=== PATIENT | male | born 1950 | race Caucasian/White ===

== ENCOUNTER 2017-11-29 12:54 | Inpatient (IN) | payer OTHER, BC ==
[~2017-11-29] VITALS: Ht 172.7 cm; Wt 99.2 kg
--- NOTE | ~2017-11-29 | O ---
[facility] [place] [address] OPERATIVE REPORT Name: SRIKANTH JOSHUA Room #: 350-P [facility] IN M.R.#: [id number] Admission: 11/29/17 Attend Phys: Eduardo Clemens MD Discharge: Date of : 46 Report #: [id number] THIS REPORT FOR: //name// CC: Eduardo Clemens Physician staff SHERRY COBB DATE OF SERVICE: 12/01/2017 SERVICE: Orthopedics. FACILITY: [facility] SURGEON: Eduardo Clemens MD PREOPERATIVE DIAGNOSES: 1. Left ankle fracture dislocation. 2. Status post closed reduction with splinting, left ankle. 3. Left ankle and hindfoot fracture blisters with residual length. 4. Left knee flexion contracture. POSTOPERATIVE DIAGNOSES: 1. Left ankle fracture dislocation. 2. Status post closed reduction with splinting, left ankle. 3. Left ankle and hindfoot fracture blisters with residual length. 4. Left knee flexion contracture. PROCEDURE: 1. Open reduction and internal fixation of left ankle fracture dislocation with internal fixation of the fibula. 2. Debridement and irrigation of superficial ankle and hindfoot wounds covering total 120 square cm. COMPLICATIONS: None. DRAINS: None. SPECIMENS: None. FINDINGS: 1. A 1/ tubular fibular plate with lag screw fixation. 2. Superficial debridement and cutaneous wound care performed. HISTORY AND INDICATIONS: The patient is a 67-year-old who sustained a fall last week, which resulted in ankle fracture dislocation. He presented to the clinic 2 days with post-injury. It subluxated his ankle. Therefore, he underwent [facility] [address] [place] [address] OPERATIVE REPORT Name: SRIKANTH JOSHUA Room #: 350-P [facility] IN ..#: [id number] Admission: 11/29/17 Attend Phys: Eduardo Clemens MD Discharge: Date of : 46 Report #: [id number] closed reduction. He had very large prominent fracture blisters, essentially circumferentially on the ankle as a result. So I performed wound care at that time as well. Then he was discharged home and then admitted to the hospital 2 days in advance for preparation, preoperative optimization as he has leukemia, thrombocytopenia and was on anticoagulation. Risks, benefits, alternatives and indications for surgery have been discussed with him in detail. The risks include but are not limited to pain, bleeding, infection, injury to nerves or blood vessels, persistent pain despite surgical intervention, malunion, nonunion, need for further surgery including revision and hardware removal as well as complications related to anesthesia such as stroke, heart attack, pulmonary complications, thromboembolic disease and . Despite these risks, he wished to proceed. PROCEDURE IN DETAIL: After right leg was correctly identified as the operative extremity, the patient was taken to the operating room after the platelet transfusion had been initiated. He was placed supine on operating table. General anesthesia was induced without complication. He was padded appropriately. Prophylactic antibiotics with 900 mg of clindamycin were administered at appropriate time. A tourniquet was applied to the left leg. Left leg was prepped and draped in standard sterile fashion. Time-out procedure was performed. Due to the patient's severe knee flexion contracture, we had to perform additional positioning efforts and then utilized an additional technical recruiter for assistance in leg positioning in order to minimize soft tissue trauma and maintain the ankle with optimal access. The leg was exsanguinated via elevation. The tourniquet was inflated to 250 mmHg. An incision was made posterior to the lateral ankle wound and a full thickness skin flap was developed. Due to the presence of the skin blister directly laterally, I had to move the incision posteriorly, which made for more extensive dissection but it was done in a very diligent gentle fashion to protect the soft tissues as much as possible. The peroneal tendons were identified as was the fibula. Dissection was taken anteriorly. The fracture was exposed and then thoroughly irrigated. Reduction performed and then it was provisionally clamped with bone reduction forceps and then I placed 2 interfragmentary compression screws to provide fixation and maintain the length and alignment. X-rays were then taken in multiple planes. I was happy with the alignment and proceeded with neutralization plate fixation. The patient has thin skin distally and so I did not want to use a distal fibular locking plate because this is very thick and would be problematic and potentially risk in breakdown as well as need for further surgery for hardware removal and he is not an optimal surgical candidate for repeat trips to the operating room. Therefore, I selected a 1/3rd tubular plate, placed in appropriate position and precontoured it. It was fixed to the fibula proximally and then distally and then I used C-arm to assess the reduction and hardware positioning. The more distal interfragmentary [facility] [address] [place] [address] OPERATIVE REPORT Name: SRIKANTH JOSHUA Yasir Room #: 350-P [facility] IN M.R.#: [id number] Admission: 11/29/17 Attend Phys: Eduardo Clemens MD Discharge: Date of : 46 Report #: [id number] compression screw obstructed purchase on the fibula distally, so ultimately this was removed and this allowed more purchase distally. More proximal interfragmentary compression screw was providing good stability, so the plate still served a neutralization role. I placed total of 3 cortical screws proximally. I did not need to utilize the fourth. This therefore allowed me to perform less soft tissue dissection proximally. Final x-rays were taken after the hardware was in and the reduction was assessed. It was found to be stable. There was no further internal fixation required. At this point, then the wound was copiously irrigated and the fascial plane was closed over the plate with 0 Vicryl suture in [id number] interrupted fashion and the tourniquet was let down as the skin was closed. A 2-0 Vicryl suture was then utilized on the skin followed by 3-0 nylon sutures in a mattress suture technique. After this was completed, wound care was performed on the ankle. There was sloughing of the skin on all of the fracture blisters which had been treated last week. These had served as a biologic dressing. There was a blood blister on the distal medial side of the ankle extending into the hindfoot. The blisters were present anteriorly, medially and laterally on the hindfoot and ankle. The skin was debrided sharply and then the wounds were all gently cleaned. No significant bleeding occurred from these wounds and then a silver impregnated wound care dressing was selected as the optimal treatment for these cutaneous blisters and exposed epidermis. Sterile dressing was then applied and a very well-padded short leg splint was applied after that and then the patient was awakened from anesthesia and taken to recovery room in stable condition. There were no complications and all counts were recorded as correct. <ELECTRONICALLY SIGNED> By: Eduardo Clemens MD 12/02/17 0649 1259 1423 Eduardo Clemens MD /godfrey
--- NOTE | ~2017-11-29 | EKG ---
[address] [address] ELECTROCARDIOGRAM REPORT Name: SRIKANTH JOSHUA Yasir Room #: 350-P ADM IN M.R.#: [id number] Admission: 11/29/17 Attend Phys: Eduardo Clemens MD Discharge: Date of : 46 Report #: [id number] THIS REPORT FOR: //name// [facility] Test Date: 2017-11-29 Test Time: 15:56:28 Pat Name: SRIKANTH JOSHUA Department: Room: 350 P Gender: M Assistive Technology Specialist: Marcell BLACKMON : 1950 Requested By: Eduardo Clemens Order Number: [id number] MD: Bryson Wesley Measurements Intervals [place] Rate: 68 P: 59 DC: 137 QRS: -41 QRSD: 103 T: 37 QT: 445 QTc: 474 Interpretive Statements Sinus rhythm PAC Left ventricular hypertrophy No previous ECG available for comparison Electronically Signed On 11-29-2017 20:47:15 [employer]ATH[employer] by Bryson Wesley [email or web address] <ELECTRONICALLY SIGNED> By: Bryson Wesley MD 11/29/17 2047 1556 1556 MD MERVIN Hughes
--- NOTE | ~2017-11-29 | HC ---
[facility] [address] [address] CONSULTATION Name: SRIKANTH JOSHUA Room #: 350- ADM IN M.R.#: [id number] Admission: 11/29/17 Attend Phys: Eduardo Clemens MD Discharge: Date of : 46 Report #: [id number] THIS REPORT FOR: //name// CC: DR. JORDEN Clemens MD Physician staff SHERRY GALLAGHER PRIMARY CARE DOCTOR: Dr. Sherry Rosas, [place], [place]. REASON FOR CONSULTATION: CLL and thrombocytopenia. HISTORY OF PRESENT ILLNESS: The patient is a 67-year-old gentleman, originally from [place], [place], who has been in [place], [place] for some time. He has worked at a [employer] center. He evidently was getting into his car and ankle gave out and rotated to side. He may have had subluxation and fracture if I understand. He has plans for surgery tomorrow. His platelets yesterday were 71,000. We are consulted. I did have a chance of talking to Dr. Karly Gallagher, she has been the patient's doctor for several years. She reports that he has benefitted with increasing platelet counts with steroids on several occasions, she suggested we initiate 80 mg of prednisone daily, which was done yesterday. Today, his platelets were essentially stable. We discussed with the patient that we will continue the steroids, but, maybe plan on platelet transfusion if his platelets are less than 80,000. I would expect him to do well. The patient denies any recent fevers, chills, nausea, vomiting, new arm or leg swelling, except for related to the ankle injury from last week. No significant weight change lately. He is not aware of any lymphadenopathy, unexplained fevers or chills. PAST MEDICAL HISTORY: Notable for the CLL. The patient says that they might have become aware of it in 1994. 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 His past therapy had included fludarabine, Cytoxan, rituximab x 1 cycle in 2003. He had single agent rituximab in 2003 with brief response. From 02/2000 through 04/2005, he had Campath due to progressive disease with good results. Then, between 06/2011 and 10/2011, received 6 cycles of bendamustine and rituximab, with reduced doses due to low platelet count. The patient reports no difficulties with his CLL or counts lately. The patient also has a history of hypertension, atrial fibrillation ____ heart disease with reports of heart failure in the past but another report of recent EF that is stable. Also has a history of gout, also mood disorder. SOCIAL HISTORY: He had worked at a [employer] center [place] [address] CONSULTATION Name: SRIKANTH JOSHUA Yasir Room #: 350-P [facility] IN ..#: [id number] Admission: 11/29/17 Attend Phys: Eduardo Clemens MD Discharge: Date of : 46 Report #: [id number] tobacco about 14 years ago, did vape for a while, stopped vaping, I believe at least 6 months ago. No significant alcohol, maybe 1 or 2 per month if had. No street drugs. FAMILY HISTORY: Mother had breast cancer in her 60s and then may be uterine cancer at a later age. Father had heart disease beginning in, maybe late 40s to early 50s, also hypertension. Had a sister with breast cancer in her 50s, another sister without issues. MEDICATIONS: Prior to admission had included allopurinol 150 mg daily, bupropion 150 mg XL once daily, carvedilol 25 b.i.d., cetirizine 10 mg b.i.d., docusate p.r.n. Enalapril 20 b.i.d., escitalopram 20 mg daily, Flonase each nostril daily as needed, lactase for lactulose intolerance daily, morphine 30 mg q.4 h p.r.n., oxycodone 30 mg q.6 hours p.r.n., Pepcid 20 mg b.i.d., potassium chloride 1 tab b.i.d., Ventolin inhalers q.6 hours p.r.n., warfarin per scheduled dose, but not recently on that. ALLERGIES: SUPPOSEDLY HAD HIVES WITH AMOXICILLIN. FACIAL SWELLING WITH GOLD CONTAINING COMPOUNDS. TRAZODONE WAS INTOLERANT. ZANAFLEX INTOLERANT. CURRENT MEDICATIONS IN THE HOSPITAL: Currently include Tylenol 500 mg q.6 p.r.n., Lovenox 100 mg b.i.d. subcu, enalapril 20 b.i.d., bupropion 150 b.i.d., carvedilol 25 mg b.i.d., OxyIR R30 mg q.6 p.r.n., morphine sulfate 30 mg q.4 p.r.n., prednisone 80 daily begun by this physician, and also lorazepam 0.5 q.i.d. p.r.n. added. PHYSICAL EXAMINATION: GENERAL: The patient appears his stated age. VITAL SIGNS: Recent height is 5 feet 8 inches, 172.7 cm. Weight 219 pounds, 99.6 kilograms. Blood pressure 155/84, O2 sat 99%, respirations 18, pulse 62, temperature 98.3. MOOD: The patient is alert, pleasant and appears to be comfortable. NEUROLOGIC: Face is symmetrical, moving all extremities. LYMPH NODES: None palpable in the supraclavicular, cervical, axillary or inguinal region. ABDOMEN: Obese, nontender. No masses, no hepatosplenomegaly. EXTREMITIES: Without clubbing, cyanosis. Left ankle deferred due to recent injury and tenderness. SKIN: Warm and dry, no unusual ecchymosis. ASSESSMENT AND PLAN: 1. Chronic thrombocytopenia, most likely related to chronic lymphocytic leukemia. We will provide prednisone 80 mg daily to see if we can get above 80,000. If not above 80,000, we will provide platelet transfusion, most likely the patient would do well with platelets above 60,000, but bleeding would be an issue around the tendons and muscles of the ankle. [facility] [address] [place] [address] CONSULTATION Name: SRIKANTH JOSHUA Yasir Room #: 350-P [facility] IN [facility].#: [id number] Admission: 11/29/17 Attend Phys: Eduardo Clemens MD Discharge: Date of : 46 Report #: [id number] 2. Chronic lymphocytic leukemia, no indications for therapy. 3. History of hypertension, possible heart issues, continue carvedilol and enalapril. 4. Gout, allopurinol as needed. 5. Mood, Wellbutrin and escitalopram as needed. 6. Atrial fibrillation, currently off Coumadin, looks like plans are for bridging with Lovenox, which seems very appropriate. 7. Possible lung disease, continue with inhalers as needed. I will be available if questions arise. <ELECTRONICALLY SIGNED> By: Collin Mcintosh MD 12/02/17 0713 0815 0851 Collin Mcintosh MD /nt
--- NOTE | ~2017-11-29 | HC ---
[facility] [place] [address] CONSULTATION Name: SRIKANTH JOSHUA Room #: 350-P ADM IN ..#: [id number] Admission: 11/29/17 Attend Phys: Eduardo Clemens MD Discharge: Date of : 46 Report #: [id number] THIS REPORT FOR: //name// CC: Eduardo Clemens Physician staff SHERRY COBB DATE OF SERVICE: 12/02/2017 HISTORY OF PRESENT ILLNESS: A 67-year-old white male with history of CLL, thrombocytopenia, chronic atrial fibrillation on Coumadin, anticoagulation who has had a history of multiple falls. He has multijoint degenerative arthritis. He had a fall in 11/23/2017, sustained a left ankle fracture with subluxation. He underwent initial splinting and was admitted now to [facility]. On 10/31/2017, he was felt to be medically cleared by Hematology regarding his CLL as well as his other medical comorbidities and underwent open reduction and internal fixation of the left ankle fracture or dislocation. There was also debridement with irrigation. He is limited to nonweightbearing on that left lower extremity. We are seeing him in rehabilitation medicine consultation. PAST MEDICAL HISTORY: Includes CLL, history of paroxysmal atrial fibrillation. He has noted multi-joint degenerative arthritis. ALLERGIES: AMOXICILLIN, TIZANIDINE, TRAZODONE, GOLD SALTS. HABITS: Former tobacco abuse, 30 years of 2 packs per day. PAST SURGICAL HISTORY: Also includes atrial fibrillation, back surgery, right hip replacement, right knee replacement, cardiomyopathy, hypertension, emphysema. There is a note of some neuropathy. SOCIAL HISTORY: House, spouse, 3 steps in, which are now ramped, premorbid walker ambulator due to his multijoint degenerative arthritis and apparently some neuropathy. REVIEW OF SYSTEMS: Did not offer any current complaints of chest pain, shortness of breath or abdominal discomfort. PHYSICAL EXAMINATION: GENERAL: A 67-year-old white male in no obvious distress. VITAL SIGNS: Last recorded temperature 99.2, pulse 62, respirations 18, blood pressure 141/78. The patient is alert, pleasant. HEENT: Appeared to be benign. NEUROLOGIC: Cranial nerves grossly intact. Facies are symmetric. EXTREMITIES: He has definite decreased upper extremity, shoulder range of [facility] [address] [place] [address] CONSULTATION Name: SRIKANTH JOSHUA Room #: [address] [place] [address] [place] [facility].#: [id number] Admission: 11/29/17 Attend Phys: Eduardo Clemens MD Discharge: Date of : 46 Report #: [id number] motion and appears to have severe shoulder chronic degenerative changes and likely some rotator cuff involvement. He cannot abduct past 90 degrees. Elbow flexion and extension is functional with strength grade 4- to 4/5. Lower extremities: He has his prior knee incisions. He has left short leg cast in place. He can wiggle his toes. Right lower extremity, some decreased sensation, proprioception right large toe. Strength is grade 4-/5. He is max assist with sit to stand, 5 feet mod assist to ambulate with a front-wheeled walker. Nonweightbearing left lower extremity. ASSESSMENT: A 67-year-old white male with the following problem list: 1. Left ankle fracture and subluxation, status post open reduction and internal fixation, 12/01/2017. Nonweightbearing. 2. Chronic lymphocytic leukemia with thrombocytopenia. 3. Chronic atrial fibrillation, on Coumadin anticoagulation. 4. History of multiple falls. 5. Multijoint degenerative arthritis. 6. Apparent bilateral shoulder severe degenerative arthritis/rotator cuff involvement. 7. Premorbid walker ambulator. He has been using a wheelchair since he broke his ankle. 8. History clinically of a premorbid peripheral neuropathy. 9. Paroxysmal atrial fibrillation. 10. Past history of tobacco abuse. PLAN: The patient unfortunately does not meet criteria for an acute [address] [place] [address] inpatient rehabilitation stay. He does not meet medical necessity criteria. Would agree with group home facility options as are being considered. <ELECTRONICALLY SIGNED> By: Kade Olivares MD 12/05/17 1509 1253 0043 Kade Olivares MD /[facility]
[2017-11-29 16:01] LABS: HEMATOCRIT 31.2 % (42.0-52.0); HEMOGLOBIN 10.3 gm/dL (14.0-18.0); MCH 29.9 pg (26.0-34.0); MCHC 33.1 g/dL (28.0-37.0); MCV 90.2 fL (80.0-100.0); RBC 3.46 mil/uL (4.50-6.00); WBC 15.6 thou/uL (4.0-11.0)
[2017-11-29 16:13] LABS: ALBUMIN 3.5 g/dL (3.4-5.0); APTT 25.9 Seconds (24.5-32.8); CALCIUM 8.5 mg/dL (8.5-10.1); CREATININE 1.1 mg/dL (0.7-1.3); INR 1.1; POTASSIUM 4.2 mmol/L (3.5-5.1); PROTIME 10.6 Seconds (9.3-11.4); TOTAL BILIRUBIN 0.4 mg/dL (<0.1-1.0)
[2017-11-29] MEDS ORDERED: MORPHINE SULFAT30 M1 PO (16:26)
[2017-11-29] MEDS ORDERED: OXYCODONE HCL30 MG PO (16:28)
[2017-11-29] MEDS ORDERED: COUMADIN 5 MG TA5 M1 PO (16:29)
[2017-11-29] MEDS ORDERED: ESCITALOPRAM OX20 MG PO (16:30)
[2017-11-29] MEDS ORDERED: CETIRIZINE HCL10 MG PO (16:31)
[2017-11-29] MEDS ORDERED: BUPROPION HCL150 M1 PO (16:31)
[2017-11-29] MEDS ORDERED: ALLOPURINOL 30300 M1 PO (16:32)
[2017-11-29] MEDS ORDERED: ENALAPRIL MALEA20 MG PO (16:32)
[2017-11-29] MEDS ORDERED: COREG25 MG PO (16:33)
[2017-11-29] MEDS ORDERED: VENTOLIN HFA 1818 GM INH (16:36)
[2017-11-29 16:42] LABS: ANISOCYTOSIS 1+; ATYPICAL LYMPHS 1 %; PLATELET COUNT 71 thou/uL (150-400)
[2017-11-29 19:35] VITALS: BP 147/77
[2017-11-30 00:05] VITALS: BP 153/82
[2017-11-30 03:52] VITALS: BP 155/84
[2017-11-30 04:29] LABS: HEMATOCRIT 31.2 % (42.0-52.0); HEMOGLOBIN 10.1 gm/dL (14.0-18.0); MCH 29.4 pg (26.0-34.0); MCHC 32.4 g/dL (28.0-37.0); MCV 90.7 fL (80.0-100.0); PLATELET COUNT 68 thou/uL (150-400); RBC 3.45 mil/uL (4.50-6.00); RDW 17.8 % (10.5-14.5); WBC 15.9 thou/uL (4.0-11.0)
[2017-11-30 06:41] LABS: ABSOLUTE NEUTROPHILS 1.4 thou/uL (1.4-8.2); ANISOCYTOSIS 1+; ATYPICAL LYMPHS 1 %
[2017-11-30 08:15] VITALS: BP 165/92
[2017-11-30 16:15] VITALS: BP 151/95
[2017-11-30 19:50] VITALS: BP 155/74
[2017-12-01] VITALS (8 sets, daily range): BP systolic 121–183; BP diastolic 70–106
[2017-12-01 05:49] LABS: HEMATOCRIT 29.6 % (42.0-52.0); HEMOGLOBIN 9.6 gm/dL (14.0-18.0); MCH 29.4 pg (26.0-34.0); MCHC 32.5 g/dL (28.0-37.0); MCV 90.4 fL (80.0-100.0); RBC 3.27 mil/uL (4.50-6.00); RDW 17.6 % (10.5-14.5); WBC 21.2 thou/uL (4.0-11.0)
[2017-12-01 06:01] LABS: CALCIUM 8.8 mg/dL (8.5-10.1); CREATININE 0.9 mg/dL (0.7-1.3)
[2017-12-01 06:47] LABS: PLATELET COUNT 79 thou/uL (150-400)
[2017-12-01 06:50] LABS: ABSOLUTE NEUTROPHILS 2.5 thou/uL (1.4-8.2); ANISOCYTOSIS SLIGHT
[2017-12-02 04:16] VITALS: BP 149/85
[2017-12-02 06:07] LABS: HEMATOCRIT 28.7 % (42.0-52.0); HEMOGLOBIN 9.1 gm/dL (14.0-18.0); MCH 28.9 pg (26.0-34.0); MCHC 31.5 g/dL (28.0-37.0); MCV 91.5 fL (80.0-100.0); PLATELET COUNT 100 thou/uL (150-400); RBC 3.14 mil/uL (4.50-6.00); RDW 17.8 % (10.5-14.5)
[2017-12-02 06:15] LABS: INR 1.1; PROTIME 11.1 Seconds (9.3-11.4)
[2017-12-02 06:20] LABS: POTASSIUM 4.2 mmol/L (3.5-5.1)
[2017-12-02 08:13] VITALS: BP 141/83
[2017-12-02 08:15] LABS: ABSOLUTE NEUTROPHILS 2.8 thou/uL (1.4-8.2)
[2017-12-02 08:16] LABS: ATYPICAL LYMPHS 4 %
[2017-12-02 08:17] LABS: POLYCHROMASIA OCCASIONAL
[2017-12-02 08:18] LABS: ANISOCYTOSIS 1+
[2017-12-02 11:45] VITALS: BP 141/78
[2017-12-02 16:30] VITALS: BP 141/77
[2017-12-02 19:40] VITALS: BP 152/70
[2017-12-03 04:40] VITALS: BP 135/62
[2017-12-03 05:05] LABS: INR 1.2; PROTIME 12.6 Seconds (9.3-11.4)
[2017-12-03 07:38] VITALS: BP 167/87
[2017-12-03 12:15] VITALS: BP 162/82
[2017-12-03 17:27] VITALS: BP 145/85
[2017-12-03 19:08] VITALS: BP 132/65
[2017-12-04 03:45] VITALS: BP 135/79
[2017-12-04 05:51] LABS: HEMATOCRIT 27.4 % (42.0-52.0); MCH 29.8 pg (26.0-34.0); MCHC 32.8 g/dL (28.0-37.0); MCV 90.9 fL (80.0-100.0); RBC 3.01 mil/uL (4.50-6.00); RDW 17.8 % (10.5-14.5); WBC 19.3 thou/uL (4.0-11.0)
[2017-12-04 05:55] LABS: INR 1.5; PROTIME 14.9 Seconds (9.3-11.4)
[2017-12-04 06:07] LABS: CALCIUM 8.3 mg/dL (8.5-10.1); CREATININE 0.9 mg/dL (0.7-1.3); POTASSIUM 4.6 mmol/L (3.5-5.1); TOTAL BILIRUBIN 0.5 mg/dL (<0.1-1.0); TOTAL PROTEIN 5.6 g/dL (6.4-8.2)
[2017-12-04 07:26] LABS: ABSOLUTE NEUTROPHILS 2.5 thou/uL (1.4-8.2)
[2017-12-04 07:27] LABS: ANISOCYTOSIS 1+; OVALOCYTES OCCASIONAL; PLATELET COUNT 90 thou/uL (150-400)
[2017-12-04 07:28] LABS: POIKILOCYTOSIS SLIGHT
[2017-12-04 09:48] VITALS: BP 135/78
[2017-12-04 17:37] VITALS: BP 138/60
[2017-12-04 19:56] VITALS: BP 129/78
[2017-12-05 03:10] VITALS: BP 120/54
[2017-12-05] MEDS ORDERED: ENOXAPARIN100 MG/11 SUBQ (06:36)
[2017-12-05 06:43] LABS: HEMATOCRIT 27.5 % (42.0-52.0); HEMOGLOBIN 8.9 gm/dL (14.0-18.0); MCH 29.4 pg (26.0-34.0); MCHC 32.2 g/dL (28.0-37.0); MCV 91.2 fL (80.0-100.0); RBC 3.01 mil/uL (4.50-6.00); RDW 17.8 % (10.5-14.5); WBC 18.8 thou/uL (4.0-11.0)
[2017-12-05 06:54] LABS: INR 1.6; PROTIME 16.4 Seconds (9.3-11.4)
[2017-12-05 06:56] LABS: CALCIUM 8.1 mg/dL (8.5-10.1); POTASSIUM 4.2 mmol/L (3.5-5.1); TOTAL BILIRUBIN 0.5 mg/dL (<0.1-1.0); TOTAL PROTEIN 5.7 g/dL (6.4-8.2)
[2017-12-05 08:51] VITALS: BP 132/71
[2017-12-05 15:49] VITALS: BP 136/68
[2017-12-05 20:00] VITALS: BP 121/66
[2017-12-06 04:00] VITALS: BP 123/65
[2017-12-06 06:26] LABS: PROTIME 20.6 Seconds (9.3-11.4)
[2017-12-06 07:17] VITALS: BP 136/66
[2017-12-06 08:02] VITALS: BP 136/66
== END 2017-12-06 14:15 | DRG 493 ==
LOC: 3W 12:54
PROVIDERS: Family Medicine; Hospitalist; Internal Medicine Hematology & Oncology; Orthopaedic Surgery Sports Medicine
PROC: 30233R1 Transfusion of Nonautologous Platelets into Peripheral Vein, Percutaneous Approach (ICD-10-PCS; principal; 2017-12-01)
PROC: 0QSK04Z Reposition Left Fibula with Internal Fixation Device, Open Approach (ICD-10-PCS; principal; 2017-12-01)
DX: S82.892A Other fracture of left lower leg, initial encounter for closed fracture (principal); C91.10 Chronic lymphocytic leukemia of B-cell type not having achieved remission; I48.2 Chronic atrial fibrillation; I10 Essential (primary) hypertension; M10.9 Gout, unspecified; Z96.641 Presence of right artificial hip joint; W19.XXXA Unspecified fall, initial encounter; M15.9 Polyosteoarthritis, unspecified; I48.0 Paroxysmal atrial fibrillation; G62.9 Polyneuropathy, unspecified; F39 Unspecified mood [affective] disorder; J98.4 Other disorders of lung; D64.9 Anemia, unspecified; G89.4 Chronic pain syndrome; Z96.651 Presence of right artificial knee joint; X58.XXXA Exposure to other specified factors, initial encounter; D69.6 Thrombocytopenia, unspecified; Z79.01 Long term (current) use of anticoagulants; Z88.1 Allergy status to other antibiotic agents; Z88.8 Allergy status to other drugs, medicaments and biological substances; Z87.891 Personal history of nicotine dependence; Z80.3 Family history of malignant neoplasm of breast; Z82.49 Family history of ischemic heart disease and other diseases of the circulatory system; Y93.89 Activity, other specified; Y92.89 Other specified places as the place of occurrence of the external cause; Y99.8 Other external cause status; Z90.5 Acquired absence of kidney
CPT/HCPCS: 10779; 50010; 50101; 50341; 50386; 51131; 51272; 51277; 51741; 56527; 56528; 56667; 57091; 62110; 62900; 70005